=== PATIENT | female | born 1980 | race Caucasian/White ===

== ENCOUNTER 2017-11-08 11:30 | Outpatient (CLI) | payer MEDICAID ==
[2017-11-08] MEDS ORDERED: OXYTOCIN 30 UNITS/LR 500 ML IV ×2 (15:30)
[2017-11-08] MEDS ORDERED: METHYLERGONOVINE 0.2 MG INJ IM (15:30)
[2017-11-08] MEDS ORDERED: BUTORPHANOL 1 MG INJ IV (15:30)
[2017-11-08] MEDS ORDERED: BUTORPHANOL 2 MG INJ IV (15:30)
[2017-11-08] MEDS ORDERED: CARBOPROST 250 MCG INJ IM (15:30)
[2017-11-08] MEDS ORDERED: MISOPROSTOL 200 MCG TAB PR (15:30)
[2017-11-08] MEDS ORDERED: LIDOCAINE 1% (MPF) 30 ML INJ INJ (15:30)
[2017-11-08] MEDS: LACTATED RINGER'S 1,000 ML IV* (16:08)
[2017-11-08] MEDS: AMPICILLIN 2 GM/NS (PMX) 100 ML IV (16:25)
[2017-11-08 16:29] LABS: ADD MAN DIFF? NO
[2017-11-08 16:35] LABS: WHITE BLOOD COUNT 12.9 10^3/ul (4.8-10.8)
[2017-11-08 16:35] LABS: BASOPHIL # 0.1 10^3/ul (0.0-0.1); BASOPHILS % 0.5 % (0.0-2.0); EOSINOPHILS # 0.2 10^3/ul (0.0-0.5); EOSINOPHILS % 1.8 % (0.0-7.0); HEMATOCRIT 37.3 % (37.0-47.0); LYMPHOCYTES # 2.5 10^3/ul (0.8-2.9); MEAN CORPUSCULAR HGB CONC 32.2 g/dl (32.0-37.0); MEAN CORPUSCULAR VOLUME 83.8 fl (82.0-101.0); MEAN PLATELET VOLUME 8.9 fl (7.4-10.4); MONOCYTE # 1.2 10^3/ul (0.3-0.9); MONOCYTES % 9.2 % (0.0-11.0); NEUTROPHIL # 8.9 10^3/ul (1.6-7.5); PLATELET COUNT 338 10^3/UL (140-415); RED BLOOD COUNT 4.45 10^6/ul (4.20-5.40); RED CELL DISTRIBUTION WIDTH 13.3 % (11.5-14.5)
[2017-11-08 16:54] LABS: GLUCOSE 66 mg/dl (70-220)
[2017-11-08 16:55] LABS: INR 0.92; PROTIME 12.4 Sec (11.9-14.9)
[2017-11-08 16:56] LABS: PARTIAL THROMBOPLASTIN TIME 26.4 Sec (25.0-35.0)
[2017-11-08 17:25] LABS: HEPATITIS B SURFACE ANTIGEN NEGATIVE (NEGATIVE)
[2017-11-08] MEDS: AMPICILLIN 1 GM/NS (PMX) 50 ML IV (20:16)
[2017-11-09 19:53] LABS: RAPID PLASMA REAGIN NONREACTIVE (NR)
== END 2017-11-08 22:51 | disposition home or self-care (01) ==
LOC: OBT 11:30 → L-D 22:51 → OBT 15:20 → L-D 15:20 → OBT 11:31 → L-D 22:50
DX: O24.419 Gestational diabetes mellitus in pregnancy, unspecified control (principal); O09.523 Supervision of elderly multigravida, third trimester; Z3A.38 38 weeks gestation of pregnancy
CPT/HCPCS: 76818; 82947; 82962; 85025; 85610; 85730; 86592; 86850; 86900; 86901; 87340

== ENCOUNTER 2017-11-13 12:35 | Inpatient (IN) | payer MEDICAID ==
[2017-11-13] MEDS: ACCU-CHEK XX ×2 (09:00→17:00)
[2017-11-13] MEDS ORDERED: IBUPROFEN 600 MG TAB PO (15:30)
[2017-11-13] MEDS ORDERED: CARBOPROST 250 MCG INJ IM (15:30)
[2017-11-13] MEDS ORDERED: OXYCODONE/ACETAMINOPHEN (5/325) TAB PO (15:30)
[2017-11-13] MEDS ORDERED: LIDOCAINE 1% (MPF) 30 ML INJ INJ (15:30)
[2017-11-13] MEDS ORDERED: METHYLERGONOVINE 0.2 MG INJ IM (15:30)
[2017-11-13] MEDS ORDERED: OXYTOCIN 30 UNITS/LR 500 ML IV (15:30)
[2017-11-13] MEDS: MISOPROSTOL 25 MCG CAPSULE PO (15:55)
[2017-11-13 15:56] LABS: ADD MAN DIFF? NO
[2017-11-13] MEDS: LACTATED RINGER'S 1,000 ML IV (15:56)
[2017-11-13 15:59] LABS: WHITE BLOOD COUNT 12.3 10^3/ul (4.8-10.8)
[2017-11-13 15:59] LABS: BASOPHIL # 0.1 10^3/ul (0.0-0.1); BASOPHILS % 0.6 % (0.0-2.0); EOSINOPHILS # 0.3 10^3/ul (0.0-0.5); EOSINOPHILS % 2.2 % (0.0-7.0); HEMATOCRIT 35.4 % (37.0-47.0); HEMOGLOBIN 11.5 g/dl (12.0-16.0); LYMPHOCYTES # 2.1 10^3/ul (0.8-2.9); LYMPHOCYTES % 16.8 % (15.0-51.0); MEAN CORPUSCULAR HEMOGLOBIN 27.5 pg (29.0-33.0); MEAN CORPUSCULAR HGB CONC 32.5 g/dl (32.0-37.0); MEAN CORPUSCULAR VOLUME 84.7 fl (82.0-101.0); MEAN PLATELET VOLUME 9.3 fl (7.4-10.4); MONOCYTE # 1.1 10^3/ul (0.3-0.9); MONOCYTES % 9.3 % (0.0-11.0); NEUTROPHIL # 8.7 10^3/ul (1.6-7.5); NEUTROPHILS % 70.5 % (39.0-77.0); PLATELET COUNT 346 10^3/UL (140-415); RED BLOOD COUNT 4.18 10^6/ul (4.20-5.40); RED CELL DISTRIBUTION WIDTH 13.2 % (11.5-14.5)
[2017-11-13 16:17] LABS: GLUCOSE, FASTING 71 mg/dl (70-110)
[2017-11-13 16:19] LABS: INR 0.95; PARTIAL THROMBOPLASTIN TIME 27.3 Sec (25.0-35.0); PROTIME 12.8 Sec (11.9-14.9)
[2017-11-13] MEDS: DEXTROSE 5%-LR 1,000 ML IV (16:24)
[2017-11-13 16:49] LABS: HEPATITIS B SURFACE ANTIGEN NEGATIVE (NEGATIVE)
[2017-11-13 19:29] LABS: ALANINE AMINOTRANSFERASE 25 IU/L (13-69); ALBUMIN 3.2 g/dl (3.3-4.9); ALBUMIN/GLOBULIN RATIO 0.96; ALKALINE PHOSPHATASE 265 IU/L (42-121); ANION GAP 13 (8-16); ASPARTATE AMINO TRANSFERASE 29 IU/L (15-46); BILIRUBIN,INDIRECT 0.2 mg/dl (0-1.1); BILIRUBIN,TOTAL 0.2 mg/dl (0.2-1.3); BLOOD UREA NITROGEN 8 mg/dl (7-20); CALCIUM 8.9 mg/dl (8.4-10.2); CARBON DIOXIDE 21 mmol/L (21-31); CHLORIDE 108 mmol/L (97-110); CREATININE 0.56 mg/dl (0.44-1.00); GLUCOSE 72 mg/dl (70-220); POTASSIUM 3.7 mmol/L (3.5-5.1); SODIUM 138 mmol/L (135-144); TOTAL PROTEIN 6.5 g/dl (6.1-8.1); URIC ACID 4.4 mg/dl (3.1-7.9)
[2017-11-13 23:56] LABS: ADD UMIC YES; UR ASCORBIC ACID NEGATIVE (NEGATIVE); UR BACTERIA FEW /HPF (NONE SEEN); UR BILIRUBIN (Dip) NEGATIVE (NEGATIVE); UR BLOOD (Dip) 2+ mg/dL (NEGATIVE); UR CLARITY SLIGHTLY CLOUDY (CLEAR); UR COLOR YELLOW (YELLOW); UR GLUCOSE (Dip) NEGATIVE (NEGATIVE); UR KETONES (Dip) 1+ mg/dL (NEGATIVE); UR LEUKOCYTE ESTERASE (Dip) 2+ Leu/ul (NEGATIVE); UR MUCUS FEW /HPF (NONE SEEN); UR NITRITE (Dip) NEGATIVE (NEGATIVE); UR RBC 2 /HPF (0-5); UR SQUAMOUS EPITHELIAL CELL MODERATE /HPF (FEW); UR TOTAL PROTEIN (Dip) NEGATIVE (NEGATIVE); UR UROBILINOGEN (Dip) NEGATIVE (NEGATIVE); UR WBC 14 /HPF (0-5)
[2017-11-14] MEDS: DEXTROSE 5%-LR 1,000 ML IV (03:28)
[2017-11-14] MEDS: BUTORPHANOL 2 MG INJ IV (07:27)
[2017-11-14] MEDS: LACTATED RINGER'S 1,000 ML IV ×2 (09:03→10:41)
[2017-11-14] MEDS ORDERED: ONDANSETRON 4 MG INJ IV ×2 (10:30→16:30)
[2017-11-14] MEDS ORDERED: NALOXONE (0.4 MG/ML) INJ IV (10:30)
[2017-11-14] MEDS ORDERED: FENTAnyl 2MCG/ML-ROPIV 0.2% 100 ML BAG EPI (10:30)
[2017-11-14] MEDS ORDERED: HYDROmorphONE 0.5 MG/0.5 ML SYG IV ×2 (10:30)
[2017-11-14] MEDS ORDERED: DIPHENHYDRAMINE 50 MG INJ IV (10:30)
[2017-11-14] MEDS ORDERED: KETOROLAC 30 MG INJ IV (10:30)
[2017-11-14] MEDS: ACCU-CHEK XX ×2 (11:00→11:26)
[2017-11-14] MEDS: OXYTOCIN 30 UNITS/LR 500 ML IV ×3 (15:56→20:09)
[2017-11-14] MEDS: MISOPROSTOL 200 MCG TAB PR (15:58)
[2017-11-14 16:23] LABS: RAPID PLASMA REAGIN NONREACTIVE (NR)
[2017-11-14] MEDS ORDERED: OXYTOCIN 30 UNITS/LR 500 ML IV (16:30)
[2017-11-14] MEDS ORDERED: MISOPROSTOL 200 MCG TAB PR (16:30)
[2017-11-14] MEDS ORDERED: NACL 0.9% 3 ML SYG IV (16:30)
[2017-11-14] MEDS ORDERED: METHYLERGONOVINE 0.2 MG INJ IM (16:30)
[2017-11-14] MEDS ORDERED: ACETAMINOPHEN 325 MG TAB PO (16:30)
[2017-11-14] MEDS ORDERED: CARBOPROST 250 MCG INJ IM (16:30)
[2017-11-14] MEDS ORDERED: ZOLPIDEM 5 MG TAB PO (16:30)
[2017-11-14] MEDS ORDERED: DIPHENHYDRAMINE 25 MG CAP PO (16:30)
[2017-11-14] MEDS: IBUPROFEN 600 MG TAB PO ×2 (18:00→23:47)
[2017-11-14] MEDS: SENNA/DOCUSATE NA (8.6MG/50MG) TAB PO (23:46)
[2017-11-14] MEDS: METHYLERGONOVINE 0.2 MG TAB PO (23:47)
[2017-11-15] MEDS: IBUPROFEN 600 MG TAB PO ×4 (05:58→23:35)
[2017-11-15 06:44] LABS: HEMATOCRIT 36.4 % (37.0-47.0); HEMOGLOBIN 11.9 g/dl (12.0-16.0)
[2017-11-15] MEDS: SENNA/DOCUSATE NA (8.6MG/50MG) TAB PO ×2 (10:33→21:41)
[2017-11-15] MEDS: LANOLIN 7 GM TUBE TOP (13:54)
[2017-11-16] MEDS: IBUPROFEN 600 MG TAB PO ×2 (05:13→12:00)
[2017-11-16] MEDS: SENNA/DOCUSATE NA (8.6MG/50MG) TAB PO (09:29)
== END 2017-11-16 13:37 | disposition home or self-care (01) | DRG 775 ==
LOC: PP1 11-14 17:46 → L-D 12:35
PROVIDERS: Obstetrics & Gynecology
PROC: 10E0XZZ Delivery of Products of Conception, External Approach (ICD-10-PCS; principal; 2017-11-14)
PROC: 0HQ9XZZ Repair Perineum Skin, External Approach (ICD-10-PCS; 2017-11-14)
PROC: 0UQMXZZ Repair Vulva, External Approach (ICD-10-PCS; 2017-11-14)
DX: O24.429 Gestational diabetes mellitus in childbirth, unspecified control (principal); O70.0 First degree perineal laceration during delivery; Z37.0 Single live birth; Z3A.39 39 weeks gestation of pregnancy
CPT/HCPCS: 62319; 80053; 81001; 82947; 82962; 84560; 85014; 85018; 85025; 85610; 85730; 86592; 86850; 86900; 86901; 87340